=== PATIENT | female | born 1990 | race Hispanic/Latino ===

== ENCOUNTER 2017-08-25 20:54 | Emergency (ER) | payer SELFPAY ==
[2017-08-25] MEDS ORDERED: SODIUM CHLORIDE 0.9% 1000ML 1,000 ML IV ONE (21:10)
[2017-08-25 21:27] LABS: BASOPHILS % (AUTO) 0.8 % (0.0-5.0); EOSINOPHILS % (AUTO) 1.9 % (0.0-8.0); HEMATOCRIT 36.1 % (36-48); LYMPHOCYTES % (AUTO) 33.4 % (21.0-51.0); MEAN CORPUSCULAR HEMOGLOBIN 26.1 pg (27.0-33.0); MEAN CORPUSCULAR HGB CONC 32.9 g/dL (32.0-36.0); MEAN CORPUSCULAR VOLUME 79.4 fL (79-99); MONOCYTES % (AUTO) 10.6 % (3.0-13.0); NEUTROPHILS % (AUTO) 53.3 % (40.0-77.0); PLATELET COUNT (AUTO) 253 K/uL (130-400); RED BLOOD CELL COUNT(AUTO) 4.55 MIL/uL (4.00-5.50); RED CELL DISTRIBUTION WIDTH 16.2 % (11.0-15.5); WHITE BLOOD COUNT (AUTO) 7.5 K/uL (4.8-10.8)
[2017-08-25 21:41] LABS: ALBUMIN 4.3 g/dL (3.5-5.0); BILIRUBIN,TOTAL 0.3 mg/dL (0.2-1.0); CREATININE 0.9 mg/dL (0.5-1.5); TOTAL PROTEIN, SERUM 8.3 g/dL (6.0-8.3)
[2017-08-25 21:54] LABS: POTASSIUM 3.1 mmol/L (3.5-5.1)
[2017-08-25] MEDS ORDERED: IOPAMIDOL-370 75 ML VIAL IV ONE (22:10)
== END 2017-08-26 00:23 | disposition home or self-care (01) ==
LOC: EDH 20:54
DX: R10.2 Pelvic and perineal pain (principal); R10.30 Lower abdominal pain, unspecified; N89.8 Other specified noninflammatory disorders of vagina; E07.9 Disorder of thyroid, unspecified; Z88.0 Allergy status to penicillin; Z91.018 Allergy to other foods
CPT/HCPCS: 36415; 74177; 80053; 83690; 84703; 85025; 99285; J7030; Q9967

== ENCOUNTER 2019-02-26 15:49 | Emergency (ER) | payer OTHER ==
[2019-02-26] MEDS ORDERED: SODIUM CHLORIDE 0.9% 1000ML 1,000 ML IV ONE (16:26)
[2019-02-26 16:31] LABS: BASOPHILS % (AUTO) 0.2 % (0.0-5.0); EOSINOPHILS % (AUTO) 1.5 % (0.0-8.0); HEMATOCRIT 37.6 % (36-48); LYMPHOCYTES % (AUTO) 14.3 % (21.0-51.0); MEAN CORPUSCULAR HEMOGLOBIN 26.6 pg (27.0-33.0); MEAN CORPUSCULAR HGB CONC 32.4 g/dL (32.0-36.0); MEAN CORPUSCULAR VOLUME 82.1 fL (79-99); MONOCYTES % (AUTO) 5.7 % (3.0-13.0); NEUTROPHILS % (AUTO) 77.7 % (40.0-77.0); PLATELET COUNT (AUTO) 259 K/uL (130-400); RED BLOOD CELL COUNT(AUTO) 4.58 MIL/uL (4.00-5.50); RED CELL DISTRIBUTION WIDTH 18.7 % (11.0-15.5); WHITE BLOOD COUNT (AUTO) 14.1 K/uL (4.8-10.8)
[2019-02-26 16:52] LABS: CREATININE 0.6 mg/dL (0.5-1.5); POTASSIUM 3.3 mmol/L (3.5-5.1)
[2019-02-26 17:18] LABS: ALBUMIN 3.5 g/dL (3.5-5.0); BILIRUBIN,TOTAL 0.3 mg/dL (0.2-1.0); TOTAL PROTEIN, SERUM 7.7 g/dL (6.0-8.3)
[2019-02-26] MEDS ORDERED: AZITHROMYCIN 250 MG TABLET PO ONE (17:41)
[2019-02-26] MEDS ORDERED: LIDOCAINE HCL-MPF 1% 2ML VIAL ONE (17:41)
[2019-02-26] MEDS ORDERED: CEFTRIAXONE SODIUM 500 MG VIAL ONE (17:41)
[2019-02-26 17:53] LABS: APPEARANCE,URINE Cloudy (CLEAR); BILIRUBIN,URINE Negative (NEGATIVE); COLOR,URINE Yellow (YELLOW); GLUCOSE, URINE (UA) Negative (NEGATIVE); KETONES,URINE >=80 mg/dL (NEGATIVE); LEUKOCYTE ESTERASE ,URINE Large (NEGATIVE); NITRATE,URINE Negative (NEGATIVE); OCCULT BLOOD,URINE Small (NEGATIVE); PROTEIN,URINE Negative (NEGATIVE); UROBILINOGEN,URINE 0.2 mg/dL (0.2-1.0)
[2019-02-26 18:04] LABS: BACTERIA,URINE Moderate /HPF (None Seen); MUCUS,URINE Few LPF (None Seen); SQUAMOUS EPITHELIAL CELL,UR Few /HPF (0-2)
[2019-02-26] MEDS ORDERED: ONDANSETRON HCL 4 MG/2 ML VIAL ONE (18:17)
== END 2019-02-26 17:31 | disposition home or self-care (01) ==
LOC: EDH 15:49
DX: O03.88 Urinary tract infection following complete or unspecified spontaneous abortion (principal); R19.7 Diarrhea, unspecified; Z88.0 Allergy status to penicillin; Z91.018 Allergy to other foods; Z3A.13 13 weeks gestation of pregnancy
CPT/HCPCS: 36415; 76801; 80053; 81001; 84702; 85025; 86900; 86901; 87486; 87797; 96361; 96372; 96374; 99285; J0696; J2405; J3490; J7030

== ENCOUNTER 2021-04-22 11:22 | Emergency (ER) | payer MEDICAID ==
[~2021-04-22] VITALS: Ht 154.9 cm; Wt 63.5 kg
[2021-04-22 11:51] LABS: BASOPHILS % (AUTO) 0.2 % (0.0-5.0); EOSINOPHILS % (AUTO) 0.1 % (0.0-8.0); HEMATOCRIT 35.1 % (36-48); LYMPHOCYTES % (AUTO) 4.1 % (21.0-51.0); MEAN CORPUSCULAR HEMOGLOBIN 25.7 pg (27.0-33.0); MEAN CORPUSCULAR HGB CONC 31.3 g/dL (32.0-36.0); MONOCYTES % (AUTO) 6.8 % (3.0-13.0); NEUTROPHILS % (AUTO) 88.3 % (40.0-77.0); PLATELET COUNT (AUTO) 234 K/uL (130-400); RED BLOOD CELL COUNT(AUTO) 4.28 MIL/uL (4.00-5.50); RED CELL DISTRIBUTION WIDTH 17.9 % (11.0-15.5); WHITE BLOOD COUNT (AUTO) 14.2 K/uL (4.8-10.8)
[2021-04-22] MEDS ORDERED: ONDANSETRON 4MG INJ IVP ONE (12:00)
[2021-04-22] MEDS ORDERED: MORPHINE 2 MG SYG IVP ONE (12:00)
[2021-04-22] MEDS ORDERED: KETOROLAC 15MG/ML VIAL (15MG/ML) IV ONE (12:00)
[2021-04-22 12:10] LABS: CREATININE 0.6 mg/dL (0.5-1.5); POTASSIUM 3.6 mmol/L (3.5-5.1)
[2021-04-22 12:14] LABS: ALBUMIN 3.9 g/dL (3.5-5.0); BILIRUBIN,TOTAL 0.3 mg/dL (0.2-1.0); TOTAL PROTEIN, SERUM 7.7 g/dL (6.0-8.3)
[2021-04-22] MEDS ORDERED: ACETAMINOPHEN 500 MG TABLET PO ONE (12:30)
[2021-04-22 14:15] LABS: BILIRUBIN,URINE Negative (NEGATIVE); COLOR,URINE Yellow (YELLOW); GLUCOSE, URINE (UA) Negative (NEGATIVE); KETONES,URINE Negative (NEGATIVE); LEUKOCYTE ESTERASE ,URINE Trace (NEGATIVE); NITRATE,URINE Negative (NEGATIVE); OCCULT BLOOD,URINE Negative (NEGATIVE); PH,URINE 8.5 (5.0-8.0); PROTEIN,URINE Trace mg/dL (NEGATIVE)
[2021-04-22 14:26] LABS: APPEARANCE,URINE CLEAR (CLEAR)
[2021-04-22 14:29] LABS: BACTERIA,URINE Rare /HPF (None Seen); MUCUS,URINE Rare LPF (None Seen); RBC,URINE 0-1 /HPF (0-1); SQUAMOUS EPITHELIAL CELL,UR Rare /HPF (0-2); WBC,URINE 0-1 /HPF (0-1)
[2021-04-22 14:30] LABS: SPERM,URINE Rare /HPF (None Seen)
[2021-04-22] MEDS ORDERED: CEFTRIAXONE 1G VIAL ONE (14:44)
[2021-04-22] MEDS ORDERED: ACET-66 PO (14:58)
[2021-04-22] MEDS ORDERED: CEPH500B PO (14:58)
[2021-04-22] MEDS ORDERED: PNV1TABL57 PO (14:58)
[2021-04-22] MEDS ORDERED: CEFTRIAXONE 1G VIAL IVP ONE (15:00)
[2021-04-22 15:18] VITALS: BP 98/42
== END 2021-04-22 15:20 | disposition home or self-care (01) ==
LOC: EDH 11:22 → EEVIPCON 11:22 → EDH 15:20
DX: O23.41 Unspecified infection of urinary tract in pregnancy, first trimester (principal); O21.8 Other vomiting complicating pregnancy; Z3A.01 Less than 8 weeks gestation of pregnancy; Z20.822 Contact with and (suspected) exposure to COVID-19; Z88.0 Allergy status to penicillin
CPT/HCPCS: 36415; 76801; 80053; 81001; 83690; 84702; 84703; 85025; 87635; 96374; 96375; 99284; C9803; J0696; J1885; J2405

== ENCOUNTER 2022-11-16 10:19 | Observation (INO) | payer MEDICAID ==
[~2022-11-16] VITALS: Ht 162.6 cm; Wt 64.9 kg
[~2022-11-16 10:19] MED LIST: ACET-66 PO; CEPH500B PO; PNV1TABL57 PO
[2022-11-16 10:49] VITALS: BP 109/69; PULSE 75; RESP 18
[2022-11-16 11:34] LABS: APPEARANCE,URINE CLOUDY (CLEAR); BILIRUBIN,URINE NEGATIVE (NEGATIVE); COLOR,URINE YELLOW (YELLOW); GLUCOSE, URINE (UA) NEGATIVE (NEGATIVE); KETONES,URINE 5 mg/dL (NEGATIVE); LEUKOCYTE ESTERASE ,URINE NEGATIVE Leu/uL (NEGATIVE); NITRATE,URINE NEGATIVE (NEGATIVE); OCCULT BLOOD,URINE NEGATIVE (NEGATIVE); PROTEIN,URINE 20 mg/dL (NEGATIVE); UROBILINOGEN,URINE 0.2 mg/dL (0.2-1.0)
[2022-11-16 11:51] LABS: ADD UA MICROSCOPIC YES
[2022-11-16 11:54] LABS: BACTERIA,URINE RARE /HPF (None Seen); MUCUS,URINE RARE LPF (None Seen); OTHER CASTS, URINE 3 /LPF (None Seen); SQUAMOUS EPITHELIAL CELL,UR MOD /HPF (0-2)
[2022-11-16] MEDS ORDERED: LACTATED RINGERS 1000ML IV PRN (13:00)
== END 2022-11-16 13:30 | disposition home or self-care (01) ==
LOC: EDH 10:19 → LDH 10:20
PROVIDERS: ADMIT Obstetrics & Gynecology; ATTEND Obstetrics & Gynecology
DX: O26.852 Spotting complicating pregnancy, second trimester (principal); O26.892 Other specified pregnancy related conditions, second trimester; R10.30 Lower abdominal pain, unspecified; Z3A.20 20 weeks gestation of pregnancy
CPT/HCPCS: 96360; 81001; G0378 ×2; G0379; J7120

== ENCOUNTER 2023-03-03 18:30 | Observation (INO) | payer MEDICAID ==
[~2023-03-03] VITALS: Ht 154.9 cm; Wt 70.8 kg
[2023-03-03 18:38] VITALS: BP 128/77; PULSE 79; RESP 14
[2023-03-03] MEDS ORDERED: LACTATED RINGERS 1000ML IV PRN (19:00)
[2023-03-03 19:23] LABS: AMPHET/METH SCREEN,URINE NEGATIVE (NEGATIVE); BARBITURATE SCREEN, URINE NEGATIVE (NEGATIVE); BENZODIAZEPINES SCREEN,URINE NEGATIVE (NEGATIVE); CANNABINOID SCREEN,URINE NEGATIVE (NEGATIVE); COCAINE SCREEN,URINE NEGATIVE (NEGATIVE); OPIATE SCREEN,URINE NEGATIVE (NEGATIVE); PHENCYCLIDINE SCREEN,URINE NEGATIVE (NEGATIVE)
[2023-03-03 19:26] LABS: APPEARANCE,URINE CLEAR (CLEAR); BILIRUBIN,URINE NEGATIVE (NEGATIVE); COLOR,URINE LIGHT-YELLOW (YELLOW); GLUCOSE, URINE (UA) NEGATIVE (NEGATIVE); KETONES,URINE NEGATIVE (NEGATIVE); LEUKOCYTE ESTERASE ,URINE 500 Leu/uL (NEGATIVE); NITRATE,URINE NEGATIVE (NEGATIVE); OCCULT BLOOD,URINE NEGATIVE (NEGATIVE); PH,URINE 6.5 (5.0-8.0); PROTEIN,URINE NEGATIVE (NEGATIVE); UROBILINOGEN,URINE 0.2 mg/dL (0.2-1.0)
[2023-03-03 19:27] LABS: ADD UA MICROSCOPIC YES
[2023-03-03 19:28] LABS: BACTERIA,URINE RARE /HPF (None Seen); MUCUS,URINE RARE LPF (None Seen); SQUAMOUS EPITHELIAL CELL,UR MOD /HPF (0-2)
[2023-03-03] MEDS ORDERED: PROMETHAZINE HCL 25 MG/ML 1ML AMPULE IM PRN (20:00)
[2023-03-03] MEDS ORDERED: ACETAMINOPHEN 500 MG TABLET PO ONE (20:00)
[2023-03-03] MEDS ORDERED: TERBUTALINE SULFATE VIAL 1MG/ML SQ PRN (20:00)
[2023-03-03] MEDS ORDERED: MEPERIDINE-PF 25 MG/ML SYG IM PRN (20:00)
[2023-03-03] MEDS ORDERED: CLINDAMYCIN IVPB 600MG/50ML 50 ML IV SCH (20:30)
== END 2023-03-03 22:55 | disposition home or self-care (01) ==
LOC: EDH 18:30 → LDH 18:57
PROVIDERS: ADMIT Obstetrics & Gynecology; ATTEND Obstetrics & Gynecology
DX: O62.9 Abnormality of forces of labor, unspecified (principal); O46.93 Antepartum hemorrhage, unspecified, third trimester; O26.893 Other specified pregnancy related conditions, third trimester; R10.9 Unspecified abdominal pain; Z79.899 Other long term (current) drug therapy; Z3A.37 37 weeks gestation of pregnancy
CPT/HCPCS: 96365; 96366; 80305; 87088; 81001; G0378 ×4; G0379; J3105; J3490; J7120; 96360; 96361; 96372